=== PATIENT | male | born 1995 | race Asian ===

== ENCOUNTER 2016-03-27 22:24 | Emergency (ER) | payer OTHER ==
[~2016-03-27] VITALS: Ht 180.3 cm; Wt 109.1 kg
[~2016-03-27 22:24] MED LIST: LIPITOR 10MG10 MG PO
[2016-03-27 22:27] VITALS: TEMP 98.3
[2016-03-27 23:27] LABS: BASO # 0.1 (0.0-0.2); BASO % 0.6 % (0.0-2.0); EOS # 0.4 (0.0-0.7); EOS % 3.9 % (0-4.0); GRAN # 7.1 (1.4-6.5); GRAN % 71.9 % (42.2-75.2); HEMATOCRIT 44.7 % (36.0-47.0); HEMOGLOBIN 14.9 g/dl (12.5-16.1); LYMPH # 1.6 (1.2-3.4); LYMPH % 15.8 % (20.0-51.0); MEAN CELL VOLUME 83 fl (80.0-95.0); MEAN CORPUSCULAR HEMOGLOBIN 28 pg (26.0-32.0); MEAN CORPUSCULAR HGB CONC 33 g/dl (33.0-37.0); MEAN PLATELET VOLUME 9.4 fl (7.4-10.4); MONO # 0.8 (0.1-0.6); MONO % 7.6 % (1.7-9.3); PLATELET COUNT 301 K/mm3 (130-400); RED BLOOD COUNT 5.37 M/mm3 (4.20-5.60); REDCELL DISTRIBUTION WIDTH-CV 11.9 % (11.5-14.5); WHITE BLOOD COUNT 9.9 K/mm3 (4.8-10.8)
[2016-03-27 23:39] LABS: ADJUSTED CALCIUM 9.3 mg/dL (8.4-10.2); ALBUMIN 4.7 gm/dL (3.5-5.0); BILIRUBIN,TOTAL 1.2 mg/dL (0.0-1.0); C-REACTIVE PROTEIN 0.6 mg/dL (0.0-0.9); CALCIUM 9.9 mg/dL (8.4-10.2); CREATININE, serum 0.91 mg/dL (0.66-1.25); TOTAL PROTEIN 8.4 gm/dL (6.4-8.2)
[2016-03-27 23:44] LABS: INFLUENZA B NEGATIVE
[2016-03-28 01:03] VITALS: BP 133/64; PULSE 90
== END 2016-03-28 01:04 | disposition home or self-care (01) ==
LOC: COL.ER 22:24
PROVIDERS: Emergency Medicine
DX: B34.9 Viral infection, unspecified (principal); R51 Headache; R50.9 Fever, unspecified; R05 Cough
CPT/HCPCS: J7030

== ENCOUNTER 2016-04-28 13:42 | Emergency (ER) | payer OTHER ==
[~2016-04-28] VITALS: Ht 177.8 cm; Wt 109.1 kg
[2016-04-28 13:46] VITALS: TEMP 98.7
[2016-04-28 14:45] LABS: ADJUSTED CALCIUM 9.4 mg/dL (8.4-10.2); ALBUMIN 4.4 gm/dL (3.5-5.0); BASO # 0.1 (0.0-0.2); BASO % 0.7 % (0.0-2.0); BILIRUBIN,TOTAL 1.2 mg/dL (0.0-1.0); C-REACTIVE PROTEIN 0.5 mg/dL (0.0-0.9); CALCIUM 9.7 mg/dL (8.4-10.2); CREATININE, serum 0.81 mg/dL (0.66-1.25); EOS # 0.4 (0.0-0.7); EOS % 4.2 % (0-4.0); GRAN % 34.2 % (42.2-75.2); HEMATOCRIT 42.2 % (36.0-47.0); HEMOGLOBIN 14.2 g/dl (12.5-16.1); LYMPH # 4.8 (1.2-3.4); MEAN CELL VOLUME 82 fl (80.0-95.0); MEAN CORPUSCULAR HEMOGLOBIN 27 pg (26.0-32.0); MEAN CORPUSCULAR HGB CONC 34 g/dl (33.0-37.0); MEAN PLATELET VOLUME 9.7 fl (7.4-10.4); MONO # 0.5 (0.1-0.6); MONO % 5.8 % (1.7-9.3); PLATELET COUNT 284 K/mm3 (130-400); POTASSIUM 3.9 mmol/L (3.4-5.0); RED BLOOD COUNT 5.18 M/mm3 (4.20-5.60); REDCELL DISTRIBUTION WIDTH-CV 12.2 % (11.5-14.5); TOTAL PROTEIN 7.9 gm/dL (6.4-8.2); WHITE BLOOD COUNT 8.8 K/mm3 (4.8-10.8)
[2016-04-28 15:30] VITALS: BP 117/601; PULSE 81
== END 2016-04-28 15:33 | disposition home or self-care (01) ==
LOC: COL.ER 13:42
PROVIDERS: Physician Assistant
DX: K52.9 Noninfective gastroenteritis and colitis, unspecified (principal)
CPT/HCPCS: J2405; J2550; J7030

== ENCOUNTER 2016-08-12 07:37 | Emergency (ER) | payer OTHER ==
[~2016-08-12] VITALS: Ht 177.8 cm; Wt 109.1 kg
[2016-08-12 07:40] VITALS: BP 139/87; PULSE 84; TEMP 99.1
[2016-08-12 08:11] LABS: BASO # 0.1 (0.0-0.2); BASO % 0.6 % (0.0-2.0); EOS # 0.6 (0.0-0.7); EOS % 6.2 % (0-4.0); GRAN % 39.3 % (42.2-75.2); HEMATOCRIT 42.3 % (36.0-47.0); HEMOGLOBIN 14.2 g/dl (12.5-16.1); LYMPH # 4.8 (1.2-3.4); LYMPH % 46.8 % (20.0-51.0); MEAN CELL VOLUME 83 fl (80.0-95.0); MEAN CORPUSCULAR HEMOGLOBIN 28 pg (26.0-32.0); MEAN CORPUSCULAR HGB CONC 34 g/dl (33.0-37.0); MEAN PLATELET VOLUME 8.8 fl (7.4-10.4); MONO # 0.7 (0.1-0.6); MONO % 6.8 % (1.7-9.3); PLATELET COUNT 315 K/mm3 (130-400); RED BLOOD COUNT 5.12 M/mm3 (4.20-5.60); REDCELL DISTRIBUTION WIDTH-CV 11.8 % (11.5-14.5); WHITE BLOOD COUNT 10.3 K/mm3 (4.8-10.8)
[2016-08-12 08:31] LABS: ADJUSTED CALCIUM 9.1 mg/dL (8.4-10.2); ALANINE AMINOTRANSFERASE 50 U/L (21-72); ALBUMIN 4.5 gm/dL (3.5-5.0); ALKALINE PHOSPHATASE 78 U/L (50-136); ANION GAP 13 mmol/L (7-16); BILIRUBIN,TOTAL 1.1 mg/dL (0.0-1.0); BLOOD UREA NITROGEN 16 mg/dL (9-20); CALCIUM 9.5 mg/dL (8.4-10.2); CARBON DIOXIDE 26 mmol/L (22-30); CHLORIDE 101 mmol/L (98-107); CREATININE, serum 0.82 mg/dL (0.66-1.25); GLUCOSE 100 mg/dL (74-106); LIPASE 100 U/L (23-300); POTASSIUM 3.9 mmol/L (3.4-5.0); SODIUM 140 mmol/L (137-145)
[2016-08-12 08:32] LABS: C-REACTIVE PROTEIN < 0.5 mg/dL (0.0-0.9)
[2016-08-12] MEDS ORDERED: PRILOSEC 20MG20 MG PO (08:40)
== END 2016-08-12 09:00 | disposition home or self-care (01) ==
LOC: COL.ER 07:37
PROVIDERS: Physician Assistant
DX: K29.70 Gastritis, unspecified, without bleeding (principal)

== ENCOUNTER 2016-11-06 10:55 | Emergency (ER) | payer OTHER ==
[~2016-11-06] VITALS: Ht 180.3 cm; Wt 109.1 kg
[~2016-11-06 10:55] MED LIST changes: +PRILOSEC 20MG20 MG PO
[2016-11-06 11:19] VITALS: BP 115/63; TEMP 98.1
[2016-11-06 12:52] VITALS: PULSE 81
== END 2016-11-06 12:53 | disposition home or self-care (01) ==
LOC: COL.ER 10:55
DX: R51 Headache (principal); R11.0 Nausea; R42 Dizziness and giddiness; F17.200 Nicotine dependence, unspecified, uncomplicated; Z20.828 Contact with and (suspected) exposure to other viral communicable diseases

== ENCOUNTER 2016-12-11 08:30 | Emergency (ER) | payer OTHER ==
[~2016-12-11] VITALS: Ht 177.8 cm; Wt 109.1 kg
[2016-12-11 08:40] VITALS: TEMP 97.9
[2016-12-11] MEDS ORDERED: ZOFRAN ODT4 MG PO (10:08)
[2016-12-11 10:20] VITALS: BP 135/90; PULSE 76
== END 2016-12-11 10:22 | disposition home or self-care (01) ==
LOC: COL.ER 08:30
DX: K21.9 Gastro-esophageal reflux disease without esophagitis (principal); F17.210 Nicotine dependence, cigarettes, uncomplicated

== ENCOUNTER 2017-04-27 18:02 | Emergency (ER) | payer OTHER ==
[~2017-04-27] VITALS: Ht 177.8 cm; Wt 109.1 kg
[~2017-04-27 18:02] MED LIST changes: +ZOFRAN ODT4 MG PO
[2017-04-27 18:07] VITALS: BP 132/81; TEMP 98.9
[2017-04-27 18:46] LABS: COLLECTION METHOD CLEAN CATCH
[2017-04-27 19:05] LABS: MUCOUS Present /lpf; PH 5 (5-8); SQUAMOUS EPITHELIAL None Seen /hpf; URINE APPEARANCE Clear; URINE BACTERIA None Seen /hpf; URINE BILIRUBIN Negative (NEGATIVE); URINE BLOOD 2+ (NEGATIVE); URINE COLOR Yellow; URINE GLUCOSE Negative (NEGATIVE); URINE KETONE Negative (NEGATIVE); URINE LEUKOCYTE ESTERASE Negative (NEGATIVE); URINE NITRATE Negative (NEGATIVE); URINE PROTEIN(semi-quant) Negative (NEGATIVE); URINE UROBILINOGEN Negative (NEGATIVE)
[2017-04-27 19:25] VITALS: PULSE 83
== END 2017-04-27 19:25 | disposition home or self-care (01) ==
LOC: COL.ER 18:02
PROVIDERS: Emergency Medicine
DX: N39.8 Other specified disorders of urinary system (principal)

== ENCOUNTER 2017-08-29 09:04 | Emergency (ER) | payer OTHER ==
[~2017-08-29] VITALS: Ht 177.8 cm; Wt 104.5 kg
[2017-08-29 09:06] VITALS: TEMP 98.1
[2017-08-29 09:42] LABS: BASO # 0.1 (0.0-0.2); BASO % 0.6 % (0.0-2.0); EOS # 0.3 (0.0-0.7); EOS % 3.5 % (0-4.0); GRAN % 44.8 % (42.2-75.2); HEMATOCRIT 44.2 % (42.0-52.0); HEMOGLOBIN 14.9 g/dl (13.5-18.0); LYMPH # 3.8 (1.2-3.4); LYMPH % 42.3 % (20.0-51.0); MEAN CELL VOLUME 82 fl (80.0-100.0); MEAN CORPUSCULAR HEMOGLOBIN 28 pg (27.0-31.0); MEAN CORPUSCULAR HGB CONC 34 g/dl (33.0-37.0); MEAN PLATELET VOLUME 9.3 fl (7.4-10.4); MONO # 0.8 (0.1-0.6); MONO % 8.6 % (1.7-9.3); PLATELET COUNT 335 K/mm3 (130-400); RED BLOOD COUNT 5.42 M/mm3 (4.20-5.60); REDCELL DISTRIBUTION WIDTH-CV 11.7 % (11.5-14.5)
[2017-08-29 09:57] LABS: ALBUMIN 4.5 gm/dL (3.5-5.0); BILIRUBIN,TOTAL 2.2 mg/dL (0.0-1.0); C-REACTIVE PROTEIN 0.8 mg/dL (0.0-0.9); CREATININE, serum 0.84 mg/dL (0.66-1.25); POTASSIUM 4.1 mmol/L (3.4-5.0); TOTAL PROTEIN 8.2 gm/dL (6.4-8.2)
[2017-08-29 10:04] LABS: COLLECTION METHOD CLEAN CATCH
[2017-08-29 10:13] LABS: MUCOUS Present /lpf; PH 5 (5-8); SQUAMOUS EPITHELIAL None Seen /hpf; URINE APPEARANCE Hazy; URINE BACTERIA Rare /hpf; URINE BILIRUBIN Negative (NEGATIVE); URINE BLOOD 1+ (NEGATIVE); URINE COLOR Amber; URINE GLUCOSE Negative (NEGATIVE); URINE KETONE Negative (NEGATIVE); URINE LEUKOCYTE ESTERASE Negative (NEGATIVE); URINE NITRATE Negative (NEGATIVE); URINE PROTEIN(semi-quant) 1+ (NEGATIVE)
[2017-08-29 10:55] VITALS: BP 130/83; PULSE 82
== END 2017-08-29 10:56 | disposition home or self-care (01) ==
LOC: COL.ER 09:04
PROVIDERS: Physician Assistant
DX: R10.33 Periumbilical pain (principal); F17.210 Nicotine dependence, cigarettes, uncomplicated
CPT/HCPCS: J1885; J2405; J7030

== ENCOUNTER 2018-02-05 11:27 | Emergency (ER) | payer OTHER ==
[~2018-02-05] VITALS: Ht 177.8 cm; Wt 104.5 kg
[2018-02-05 11:30] VITALS: BP 126/71
[2018-02-05] MEDS ORDERED: LIPITOR20 MG PO (11:35)
[2018-02-05] MEDS ORDERED: [UNRECOGNIZED DRUG - OTHER] PO (11:35)
[2018-02-05] MEDS ORDERED: DOXYCYCLINE 10100 MG PO ×2 (11:55)
[2018-02-05] MEDS ORDERED: VOLTAREN 75 DR75 MG PO (11:55)
[2018-02-05 12:35] VITALS: PULSE 72; TEMP 97.1
== END 2018-02-05 12:34 | disposition home or self-care (01) ==
LOC: COL.ER 11:27
DX: R68.84 Jaw pain (principal)

== ENCOUNTER → 2018-09-08 | Emergency (ER) | payer OTHER ==
[~2018-09-08] MED LIST changes: +DOXYCYCLINE 10100 MG PO; +LIPITOR20 MG PO; +VOLTAREN 75 DR75 MG PO; +[UNRECOGNIZED DRUG - OTHER] PO
== END ==
LOC: COL.ER 23:39
DX: Z72.9 Problem related to lifestyle, unspecified (principal)

== ENCOUNTER 2018-09-09 23:37 | Emergency (ER) | payer OTHER ==
[~2018-09-09] VITALS: Ht 180.3 cm; Wt 90.9 kg
[2018-09-09 23:41] VITALS: BP 131/74; TEMP 97.7
[2018-09-10 00:56] VITALS: PULSE 99
== END 2018-09-10 01:00 | disposition home or self-care (01) ==
LOC: COL.ER 23:37
DX: S80.811A Abrasion, right lower leg, initial encounter (principal); F32.9 Major depressive disorder, single episode, unspecified; E78.5 Hyperlipidemia, unspecified; F17.210 Nicotine dependence, cigarettes, uncomplicated; F12.90 Cannabis use, unspecified, uncomplicated; Z23 Encounter for immunization; W18.39XA Other fall on same level, initial encounter; W22.8XXA Striking against or struck by other objects, initial encounter; Y92.009 Unspecified place in unspecified non-institutional (private) residence as the place of occurrence of the external cause; Y93.01 Activity, walking, marching and hiking

== ENCOUNTER 2018-09-22 20:12 | Emergency (ER) | payer OTHER ==
[~2018-09-22] VITALS: Ht 177.8 cm; Wt 86.0 kg
[2018-09-22 21:34] LABS: BASO % 0.4 % (0.0-2.0); EOS # 0.2 (0.0-0.7); EOS % 2.3 % (0-4.0); GRAN # 6.5 (1.4-6.5); GRAN % 66.3 % (42.2-75.2); HEMATOCRIT 43.5 % (42.0-52.0); HEMOGLOBIN 14.4 g/dl (13.5-18.0); LYMPH # 2.2 (1.2-3.4); LYMPH % 22.7 % (20.0-51.0); MEAN CELL VOLUME 84 fl (80.0-100.0); MEAN CORPUSCULAR HEMOGLOBIN 28 pg (27.0-31.0); MEAN CORPUSCULAR HGB CONC 33 g/dl (33.0-37.0); MEAN PLATELET VOLUME 9.7 fl (7.4-10.4); MONO # 0.8 (0.1-0.6); MONO % 8.1 % (1.7-9.3); PLATELET COUNT 324 K/mm3 (130-400); RED BLOOD COUNT 5.16 M/mm3 (4.20-5.60); REDCELL DISTRIBUTION WIDTH-CV 11.9 % (11.5-14.5)
[2018-09-22 21:34] LABS: COLLECTION METHOD CLEAN CATCH
[2018-09-22 21:42] LABS: ACETAMINOPHEN < 10 ug/mL (10-30); ALANINE AMINOTRANSFERASE 22 U/L (21-72); ALBUMIN 4.4 gm/dL (3.5-5.0); ALCOHOL(ethanol),MEDICAL < 10 mg/dL; ALKALINE PHOSPHATASE 85 U/L (50-136); ANION GAP 10 mmol/L (7-16); AST,SGOT 22 U/L (15-37); BILIRUBIN,TOTAL 0.9 mg/dL (0.0-1.0); BLOOD UREA NITROGEN 10 mg/dL (9-20); CALCIUM 10.2 mg/dL (8.4-10.2); CARBON DIOXIDE 26 mmol/L (22-30); CHLORIDE 107 mmol/L (98-107); GLUCOSE 88 mg/dL (74-106); POTASSIUM 3.7 mmol/L (3.4-5.0); SALICYLATE < 1.0 mg/dL; SODIUM 143 mmol/L (137-145); TOTAL PROTEIN 7.7 gm/dL (6.4-8.2)
[2018-09-22 21:49] LABS: MUCOUS Present /lpf; PH 6 (5-8); SQUAMOUS EPITHELIAL None Seen /hpf; URINE APPEARANCE Clear; URINE BACTERIA None Seen /hpf; URINE BILIRUBIN Negative (NEGATIVE); URINE BLOOD 1+ (NEGATIVE); URINE COLOR Yellow; URINE GLUCOSE Negative (NEGATIVE); URINE KETONE Negative (NEGATIVE); URINE LEUKOCYTE ESTERASE Negative (NEGATIVE); URINE NITRATE Negative (NEGATIVE); URINE PROTEIN(semi-quant) Negative (NEGATIVE); URINE UROBILINOGEN Negative (NEGATIVE)
[2018-09-22 21:54] LABS: TRICYCLIC ANTIDEPRESS URINE NEGATIVE
[2018-09-24 15:44] VITALS: BP 126/76; PULSE 80; TEMP 98.4
== END 2018-09-24 15:46 ==
LOC: COL.ER 20:12
PROVIDERS: Emergency Medicine
DX: R45.851 Suicidal ideations (principal); F12.10 Cannabis abuse, uncomplicated
CPT/HCPCS: J1630

== ENCOUNTER 2018-10-08 10:24 | Emergency (ER) | payer OTHER ==
[~2018-10-08] VITALS: Ht 180.3 cm; Wt 85.0 kg
[2018-10-08 10:30] VITALS: BP 127/77; TEMP 98
[2018-10-08 11:07] LABS: COLLECTION METHOD CLEAN CATCH
[2018-10-08 11:19] LABS: MUCOUS Present /lpf; PH 5 (5-8); SQUAMOUS EPITHELIAL None Seen /hpf; URINE APPEARANCE Clear; URINE BACTERIA Rare /hpf; URINE BILIRUBIN Negative (NEGATIVE); URINE BLOOD 2+ (NEGATIVE); URINE COLOR Yellow; URINE GLUCOSE Negative (NEGATIVE); URINE KETONE Trace (NEGATIVE); URINE LEUKOCYTE ESTERASE Negative (NEGATIVE); URINE NITRATE Negative (NEGATIVE); URINE PROTEIN(semi-quant) Negative (NEGATIVE); URINE UROBILINOGEN Negative (NEGATIVE)
[2018-10-08 11:30] LABS: TRICYCLIC ANTIDEPRESS URINE NEGATIVE
[2018-10-08 11:40] LABS: BASO % 0.5 % (0.0-2.0); EOS # 0.1 (0.0-0.7); EOS % 1.2 % (0-4.0); GRAN # 5.9 (1.4-6.5); GRAN % 68.5 % (42.2-75.2); HEMATOCRIT 45.3 % (42.0-52.0); LYMPH % 23.2 % (20.0-51.0); MEAN CELL VOLUME 85 fl (80.0-100.0); MEAN CORPUSCULAR HEMOGLOBIN 28 pg (27.0-31.0); MEAN CORPUSCULAR HGB CONC 33 g/dl (33.0-37.0); MEAN PLATELET VOLUME 9.3 fl (7.4-10.4); MONO # 0.6 (0.1-0.6); MONO % 6.4 % (1.7-9.3); PLATELET COUNT 324 K/mm3 (130-400); RED BLOOD COUNT 5.36 M/mm3 (4.20-5.60); REDCELL DISTRIBUTION WIDTH-CV 11.9 % (11.5-14.5)
[2018-10-08 11:49] LABS: ALANINE AMINOTRANSFERASE 17 U/L (21-72); ALBUMIN 4.5 gm/dL (3.5-5.0); ALKALINE PHOSPHATASE 94 U/L (50-136); ANION GAP 12 mmol/L (7-16); AST,SGOT 20 U/L (15-37); BILIRUBIN,TOTAL 1.6 mg/dL (0.0-1.0); BLOOD UREA NITROGEN 13 mg/dL (9-20); CALCIUM 10.2 mg/dL (8.4-10.2); CARBON DIOXIDE 28 mmol/L (22-30); CHLORIDE 101 mmol/L (98-107); CREATININE, serum 0.82 (0.66-1.25); GLUCOSE 90 mg/dL (74-106); POTASSIUM 4.3 mmol/L (3.4-5.0); SODIUM 141 mmol/L (137-145); TOTAL PROTEIN 8.2 gm/dL (6.4-8.2)
[2018-10-08 11:54] LABS: ACETAMINOPHEN < 10 ug/mL (10-30); ALCOHOL(ethanol),MEDICAL < 10 mg/dL; SALICYLATE < 1.0 mg/dL
[2018-10-08] MEDS ORDERED: OMNICEF 300MG300 MG PO (15:16)
[2018-10-08 16:01] VITALS: PULSE 78
== END 2018-10-08 16:01 | disposition home or self-care (01) ==
LOC: COL.ER 10:24
PROVIDERS: Emergency Medicine
DX: R45.851 Suicidal ideations (principal); F17.210 Nicotine dependence, cigarettes, uncomplicated
CPT/HCPCS: J0696